=== PATIENT | male | born 1985 ===

== ENCOUNTER 2024-05-11 14:15 | Outpatient (REF) | payer OTHER, SELFPAY ==
--- NOTE | ~2024-05-11 | XR_ITS ---
EXAMINATION: XR LUMBOSACRAL SPINE CLINICAL INFORMATION: Dorsalgia, unspecified. COMPARISON: None available. TECHNIQUE: AP and lateral views of the lumbar spine and lateral view of the lumbosacral junction. FINDINGS: Minimal right convex lumbar curvature and small endplate osteophytes at L1-L2. Intervertebral disc heights are well preserved. Vertebral body heights are normal. Possible mild facet arthropathy at L5-S1. No spondylolisthesis. Cholecystectomy clips in the right upper quadrant. SI joints are unremarkable. XR/XR lumbar spine 2-3V IMPRESSION: 1. Minimal degenerative disc disease at L1-L2. 2. Possible mild facet arthropathy at L5-S1. Electronically signed by: Victor Hugo Espino MD 05/24/2024 11:47 PM EDT
--- NOTE | ~2024-05-11 | XR_ITS ---
EXAMINATION: XR HIP, LEFT CLINICAL INFORMATION: Low back pain, unspecified COMPARISON: None TECHNIQUE: AP and frog-leg lateral views of the left hip. FINDINGS: No fracture. Alignment is anatomic. Hip joint space is maintained. Soft tissues are unremarkable. Bone mineralization is normal. Pubic symphysis is unremarkable. Soft tissues are normal. XR/XR hip LT min 2V IMPRESSION: Normal left hip radiographs. Electronically signed by: Victor Hugo Espino MD 05/24/2024 11:14 PM EDT
== END 2024-05-11 14:16 | disposition home or self-care (01) ==
LOC: HO.XRAY 14:15
PROVIDERS: PCP Student in an Organized Health Care Education/Training Program; Visit Provider Physical Medicine & Rehabilitation
DX: M54.50 Low back pain, unspecified (principal); M25.552 Pain in left hip; M54.9 Dorsalgia, unspecified
CPT/HCPCS: 72100; 73502; 99202

== ENCOUNTER 2024-05-11 14:15 | Outpatient (AMB) | payer OTHER, SELFPAY ==
--- NOTE | 2024-05-11 14:17 | MHC.OFFVIS ---
Intake Visit Reasons: WC LT sided lower back pain Intake Note: Alon is a 38 year old who presents today as a new patient for a worker's compensation related injury to his back that occurred about 4 months ago. Patient was referred to us by [facility], LUAN Jones. Per referral, patient has tried physical therapy which patient has found helpful, however, patient continues to have pain when he tries to lift something. Patient reports pain is mainly on his left side and states it radiates to his buttocks occasionally. Acquisition Marketing Coordinator Required: Yes Acquisition Marketing Coordinator Services: Acquisition Marketing Coordinator Present (Daughter) Acquisition Marketing Coordinator Name: Leandra Allergies No Known Allergies Allergy (Verified 05/11/24 14:18) HPI Comments Details: Works in [employer]. Carries 20-30 lbs. 4 months ago, was picking up a rotor from the floor, bent forward, then felt left sided pain while lifting and bending/twisting. [place] like something broke . Had PT already. No xray or imaging. Nowadays, points to left SI joint area. Radiates to left buttocks only. Not to the foot. Denies numbness. Denies foot drop or weakness. No bladder/bowel pain. Denies chronic back pain or back injury. History of scoliosis, diagnosed 9 years ago but no pain associated with it. Review of Systems Const All systems reviewed & are unremarkable except as noted in HPI and below Physical Exam Constitutional: Patient appears to be in no acute distress, well nourished and well developed. Patient was appropriately conversant and oriented. Good historian. MSK: No specific abnormalities found on inspection of the spine and all extremities. Tender mid lower back. Nontender and SI joint. No tenderness on GT. Lumbar ROM was full. Bilateral hip, knee and ankle ROM WNL. No ligamentous laxity or crepitance. No increased effusion. Straight-leg raising test positive left lateral hip pain. FABERE test positive left lateral hip pain. Strength is 5/5 in all muscle groups tested. No increased tone noted. Neurological: Neurologic examination of the upper and lower extremities was nonfocal with intact sensation, muscle stretch reflexes and without focal motor deficits . Harkins?s negative bilaterally. Babinski was down going bilaterally. Clonus was negative. Gait is antalgic without loss of balance. Results Reviewed Results Reviewed: I reviewed records from the following: Referral note from PCP Assessment & Plan Assessment & Plan (1) Left lumbar pain: Code(s): M54.50 - Low back pain, unspecified Category: Medical (2) Left hip pain: Code(s): M25.552 - Pain in left hip Category: Medical Plan Area of pain suspected to be SI joint but he does not have tenderness over the SI joint. No imaging has been done in the past. Sending for lumbar and hip x-rays today. Briefly discussed possibility of injections and patient would consider. Assessment and plan discussed with patient, and patient was agreeable. All questions were answered thoroughly. Follow up after x-rays, to decide further treatment/injections. Berta Daniels MD, RAMON Board Certified, [place] Board [employer] and Rehabilitation (ABPMR) Board Certified, [place] Board [employer] Electrodiagnostic Medicine (ABEM) Orders: Orders XR lumbar spine 2-3V Today M25.552 - Pain in left hip, M54.50 - Low back pain, unspecified, M54.9 - Dorsalgia, unspecified XR hip LT min 2V Today M25.552 - Pain in left hip, M54.50 - Low back pain, unspecified Coding Level of Care Code New Pt Level 4 (64146) Diagnoses Left lumbar pain M54.50 Left hip pain M25.552
== END 2024-05-11 14:42 | disposition home or self-care (01) ==
PROVIDERS: PCP Student in an Organized Health Care Education/Training Program; Visit Provider Physical Medicine & Rehabilitation
DX: M54.50 Low back pain, unspecified (principal); M25.552 Pain in left hip
CPT/HCPCS: 99203

== ENCOUNTER 2024-06-15 10:01 | Outpatient (AMB) | payer OTHER, SELFPAY ==
--- NOTE | 2024-06-15 10:05 | MHC.OFFVIS ---
Intake Visit Reasons: OV-LT sided lower back pain-follow up Intake Note: Alon is a 38 year old who presents today for a follow up for his lower back pain. Patient reports he is still continuing to have pain. He states that certain movements makes his pain worse. Patient also mentioned since its cold out his pain is a bit worse. Accompanied by: Spouse Allergies No Known Allergies Allergy (Verified 05/11/24 14:18) HPI Comments Details: Works in [employer]. Carries 20-30 lbs. 4 months ago, was picking up a rotor from the floor, bent forward, then felt left sided pain while lifting and bending/twisting. [place] like something broke . Had PT already. No xray or imaging. He points to left SI joint area. Radiates to left buttocks only. Not to the foot. Denies numbness. Denies foot drop or weakness. No bladder/bowel pain. Denies chronic back pain or back injury. He has separate left knee pain. History of scoliosis, diagnosed 9 years ago but no pain associated with it. He says pain is less 5/10 now but still bothers him daily. He [facility] to [facility], the doctor there prescribed a medication that he could not tolerate due to sedation side effects. Last seen there in January/February. WC has been closed. 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 Physical Exam Constitutional: Patient appears to be in no acute distress, well nourished and well developed. Patient was appropriately conversant and oriented. Good historian. MSK: No specific abnormalities found on inspection of the spine and all extremities. Tender left lumbar paraspinals and left SI joint. Lumbar ROM was full. Bilateral hip, knee and ankle ROM WNL. No ligamentous laxity or crepitance. No increased effusion. Straight-leg raising test positive left lateral hip pain. FABERE test positive left lateral hip pain. Strength is 5/5 in all muscle groups tested. No increased tone noted. Neurological: Neurologic examination of the upper and lower extremities was nonfocal with intact sensation, muscle stretch reflexes and without focal motor deficits . Harkins?s negative bilaterally. Babinski was down going bilaterally. Clonus was negative. Gait is not antalgic without loss of balance. Results Reviewed Results Reviewed: Ordering Physician: Berta Bowden Date of Service: 05/11/24 Procedure(s): XR lumbar spine 2-3V Accession Number(s): [id number] cc: Dacia Fuchs; Berta Bowden~ EXAMINATION: XR LUMBOSACRAL SPINE CLINICAL INFORMATION: Dorsalgia, unspecified. COMPARISON: None available. TECHNIQUE: AP and lateral views of the lumbar spine and lateral view of the lumbosacral junction. FINDINGS: Minimal right convex lumbar curvature and small endplate osteophytes at L1-L2. Intervertebral disc heights are well preserved. Vertebral body heights are normal. Possible mild facet arthropathy at L5-S1. No spondylolisthesis. Cholecystectomy clips in the right upper quadrant. SI joints are unremarkable. XR/XR lumbar spine 2-3V IMPRESSION: 1. Minimal degenerative disc disease at L1-L2. 2. Possible mild facet arthropathy at L5-S1. Electronically signed by: Victor Hugo Espino MD 05/24/2024 11:47 PM EDT Ordering Physician: Berta Bowden Date of Service: 05/11/24 Procedure(s): XR hip LT min 2V Accession Number(s): [id number] cc: Dacia Fuchs; Berta Farias EXAMINATION: XR HIP, LEFT CLINICAL INFORMATION: Low back pain, unspecified COMPARISON: None TECHNIQUE: AP and frog-leg lateral views of the left hip. FINDINGS: No fracture. Alignment is anatomic. Hip joint space is maintained. Soft tissues are unremarkable. Bone mineralization is normal. Pubic symphysis is unremarkable. Soft tissues are normal. XR/XR hip LT min 2V IMPRESSION: Normal left hip radiographs. Electronically signed by: Victor Hugo Espino MD 05/24/2024 11:14 PM EDT RP Assessment & Plan Assessment & Plan (1) Left lumbar pain: Code(s): M54.50 - Low back pain, unspecified Category: Medical (2) Lumbar disc herniation: Code(s): M51.26 - Other intervertebral disc displacement, lumbar region Category: Medical Plan Only slightly better since last time I saw him. Left SI joint versus lumbar radiculitis. 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 We discussed treatment options such as SI joint injection versus obtaining lumbar MRI 1st. Patient had undergone adequate conservative management including PT without improvement of condition. It would be reasonable to obtain further imaging such as MRI. An MRI would help rule out any serious condition, guide treatment and assess prognosis for recovery. Specifically ruling out left L5-S1 disc herniation. Assessment and plan discussed with patient, and patient was agreeable. All questions were answered thoroughly. Follow up after MRI. Berta Daniels MD, RAMON Board Certified, [place] Board [employer] Medicine and Rehabilitation (ABPMR) Board Certified, [place] Board [employer] Electrodiagnostic Medicine (ABEM) Orders: Orders MR lumbar spine wo con Today M51.26 - Other intervertebral disc displacement, lumbar region, M54.50 - Low back pain, unspecified Coding Level of Care Code Est Pt Level 4 (78907) Diagnoses Left lumbar pain M54.50 Lumbar disc herniation M51.26
== END 2024-06-15 10:27 | disposition home or self-care (01) ==
PROVIDERS: PCP Student in an Organized Health Care Education/Training Program; Visit Provider Physical Medicine & Rehabilitation
DX: M54.50 Low back pain, unspecified (principal)
CPT/HCPCS: 99214

== ENCOUNTER → 2024-06-15 10:01 | Outpatient (BNVA) | payer OTHER, SELFPAY | PROVIDERS: PCP Student in an Organized Health Care Education/Training Program; Visit Provider Physical Medicine & Rehabilitation | DX: M51.26 Other intervertebral disc displacement, lumbar region (principal) | CPT/HCPCS: 99212 ==

== ENCOUNTER 2024-07-30 09:41 | Outpatient (REF) | payer MEDICAID, SELFPAY ==
--- NOTE | ~2024-07-30 | MR_ITS ---
EXAMINATION: MR LUMBAR SPINE WITHOUT CONTRAST CLINICAL INFORMATION: Low back pain, work injury in November 2023, worsening left-sided lumbar radiculopathy, lower limb instability. Evaluate L5-S1 disc herniation COMPARISON: Lumbar spine x-ray on 05/11/2024 TECHNIQUE: MRI of the lumbar spine was obtained using routine sequences without contrast. FINDINGS: The visualized lumbar vertebrae are intact with normal alignment. Evaluation of the intervertebral discs show: T12/L1: Intervertebral disc height is normal, with normal T2 signal. No focal disc herniation is seen. Bilateral T12/L1 neuroforamina are patent. Bilateral apophyseal joints are intact with normal alignment. Left lateral superior L1 T2 hyperintense lesion with punctate flow voids is seen, measuring 0.7 cm in horizontal diameter, 0.9 cm in vertical height, compatible with a small cavernous hemangioma. L-1/L-2: Intervertebral disc height is normal, with normal T2 signal. No focal disc herniation is seen. Bilateral L1-L2 neuroforamina are patent. Bilateral apophyseal joints are intact with normal alignment. L2/L3: Intervertebral disc height is normal, with normal T2 signal. No focal disc herniation is seen. Bilateral L2-L3 neuroforamina are patent. Bilateral apophyseal joints are intact with normal alignment. L3/L4: Intervertebral disc height is normal, with normal T2 signal. No focal disc herniation is seen. Bilateral L3-L4 neuroforamina are patent. Bilateral apophyseal joints are intact with normal alignment. L4/L5: Intervertebral disc height is normal, with normal T2 signal. No focal disc herniation is seen. Bilateral L4-L5 neuroforamina are patent. Bilateral apophyseal joints are intact with normal alignment. L5/S1: Intervertebral disc height is mildly decreased, with mild loss of T2 signal. No focal disc herniation is seen. Bilateral L5-S1 neuroforamina are patent. Bilateral apophyseal joints are intact with normal alignment. Conus medullaris is seen normally at L1-L2 junction level. MR/MR lumbar spine wo con IMPRESSION: 1. Mild degenerative disc disease at L5-S1. 2. No focal disc herniation, spinal canal stenosis or neural foraminal narrowing is seen. 3. Small cavernous hemangioma at L1. Electronically signed by: Low Nagel MD 08/11/2024 12:42 ZULEIMA ADAMS RP
== END 2024-07-30 09:42 | disposition home or self-care (01) ==
LOC: HO.MRI 09:41
PROVIDERS: PCP Student in an Organized Health Care Education/Training Program; Visit Provider Physical Medicine & Rehabilitation
DX: M51.26 Other intervertebral disc displacement, lumbar region (principal)
CPT/HCPCS: 72148

== ENCOUNTER 2024-08-23 10:18 | Outpatient (REF) | payer MEDICAID, SELFPAY | END 2024-08-23 10:19 | disposition home or self-care (01) | LOC: HO.XRAY 10:18 | PROVIDERS: PCP Student in an Organized Health Care Education/Training Program; Visit Provider Nurse Practitioner Family | DX: M54.50 Low back pain, unspecified (principal); M62.830 Muscle spasm of back; M25.562 Pain in left knee; M53.3 Sacrococcygeal disorders, not elsewhere classified | CPT/HCPCS: 73562; 99212 ==

== ENCOUNTER 2024-08-23 10:18 | Outpatient (AMB) | payer MEDICAID, SELFPAY ==
--- NOTE | 2024-08-23 10:24 | MHC.OFFVIS ---
Vital Signs 08/23/24 10:27 Height 5 ft 6 in Weight 228 lb 4 oz BMI 36.8 BP 148/79 H Blood Pressure Location Lt brachial Position Sitting Pulse 95 Pulse Source Pulse Oximeter Pulse Oximetry (%) 99 Oxygen Delivery Method Room Air Intake Visit Reasons: Sacrococcygeal disorders Intake Note: Pain today 04/09 Wound Care Specialist Required: Yes Wound Care Specialist Language: Content Curator Name: Daughter Accompanied by: Daughter Allergies No Known Allergies Allergy (Verified 08/23/24 10:26) HPI HPI Sacrococcygeal disorders: Details: Patient is 38-year-old Tajik-speaking male presents today with left sided low back pain. She was referred to our office by [facility] services for consideration of SI joint injection. 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 Back pain is localized to left buttock and radiates into his left lateral hip and knee but not below knee level. Denies any numbness, tingling or burning pain. Patient continues to experience significant pain with lifting, bending, twisting, changing positions, climbing stairs, and prolonged walking. He completed physical therapy, tried NSAIDs and heat/ice therapy with no symptom or functioning improvement. Denies any fever or chills, rash, infection, abdominal or groin pain, weakness, bladder or bowel dysfunction or saddle anesthesia. Location: Left side low back and left knee Duration: Chronic pain for over 4 months, due to heavy lifting at work Characteristics of symptom or complaint: Aching, sore, heavy, stabbing, shooting, throbbing Aggravating or associated factors: Walking, lifting, bending, twisting, climbing stairs, movements, work, ADLs Relieving factors: Rest, slow walking, avoiding stairs and heavy lifting, heat/ice, NSAIDs Treatment: Physical therapy, Physiatry evaluation ON LICENSE OF [facility] Medical History (Updated 08/23/24 @ 10:58 by SHARI Ward) Hepatic steatosis Prediabetes Sacroiliac joint pain Surgical History (Updated 08/23/24 @ 10:55 by SHARI Ward) Hx of cholecystectomy Review of Systems Const All systems reviewed & are unremarkable except as noted in HPI and below Physical Exam Vital Signs: Last Vital Signs Pulse 95 12/24/24 10:27 BP 148/79 H 08/23/24 10:27 Pulse Ox 99 08/23/24 10:27 Oxygen Delivery Method Room Air 08/23/24 10:27 BMI result Body Mass Index 36.8 General: Appears afebrile. Alert and oriented. Mood and affect appropriate. Follows and participates in conversation appropriately. Respiratory effort is unlabored. No cough. Able to transition from sit to stand unassisted. Ambulates with bilaterally normal heel strike and toe off. General: Yes no CVA tenderness Back/Spine/Pelvis Other: Patient is able to walk and stand on heels and tip toes with no difficulties demonstrating good motor tone. No limping. Can flex forward to 70-75 degrees and extend to 10-15 degrees before experiencing lumbar pain. Demonstrates 5/5 strength of quadriceps bilaterally as well as flexion/dorsiflexion of bilateral feet against resistance. 2+ pedal pulses bilaterally. Straight leg rise with dorsiflexion negative bilaterally. +2 patellar and achilles reflexes bilaterally. Facet loading test positive bilaterally. Marlyn sign positive on the left, Benjamin?s, [place], Pelvic compression and Stinchfield tests are positive on the left. No groin pain with I/E hip rotations. Valsalva maneuver negative. Back: no CVA tenderness Cervical Spine: cervical ROM normal, cervical muscular tenderness and No Cervical spine tenderness Thoracic/Lumbar Spine: thoracic and lumbar spine normal to inspection, No Thoracic/lumbar spine scar(s), Lasegue's sign negative, straight leg raise negative bilaterally, pain with thoraco-lumbar ROM, No thoracic spinal tenderness and No lumbar spinal tenderness Pelvis: buttock tenderness on the left and no sciatic notch tenderness Sacroiliac joints: on the right nontender and on the left tender to palpation Extrem General: Yes capillary refill normal, Yes no clubbing, cyanosis or edema and Yes no calf tenderness Left lower extremity: knee Details: normal to inspection, tenderness Location: of the patella, of the medial joint line and of the lateral joint line and crepitus; no swelling, no ecchymosis, no deformity and no unusual warmth Results Reviewed Results Reviewed: MR LUMBAR SPINE WITHOUT CONTRAST 07/30/24 CLINICAL INFORMATION: Low back pain, work injury in November 2023, worsening left-sided lumbar radiculopathy, lower limb instability. Evaluate L5-S1 disc herniation COMPARISON: Lumbar spine x-ray on 05/11/2024 TECHNIQUE: MRI of the lumbar spine was obtained using routine sequences without contrast. FINDINGS: The visualized lumbar vertebrae are intact with normal alignment. Evaluation of the intervertebral discs show: T12/L1: Intervertebral disc height is normal, with normal T2 signal. No focal disc herniation is seen. Bilateral T12/L1 neuroforamina are patent. Bilateral apophyseal joints are intact with normal alignment. Left lateral superior L1 T2 hyperintense lesion with punctate flow voids is seen, measuring 0.7 cm in horizontal diameter, 0.9 cm in vertical height, compatible with a small cavernous hemangioma. L-1/L-2: Intervertebral disc height is normal, with normal T2 signal. No focal disc herniation is seen. Bilateral L1-L2 neuroforamina are patent. Bilateral apophyseal joints are intact with normal alignment. L2/L3: Intervertebral disc height is normal, with normal T2 signal. No focal disc herniation is seen. Bilateral L2-L3 neuroforamina are patent. Bilateral apophyseal joints are intact with normal alignment. L3/L4: Intervertebral disc height is normal, with normal T2 signal. No focal disc herniation is seen. Bilateral L3-L4 neuroforamina are patent. Bilateral apophyseal joints are intact with normal alignment. L4/L5: Intervertebral disc height is normal, with normal T2 signal. No focal disc herniation is seen. Bilateral L4-L5 neuroforamina are patent. Bilateral apophyseal joints are intact with normal alignment. L5/S1: Intervertebral disc height is mildly decreased, with mild loss of T2 signal. No focal disc herniation is seen. Bilateral L5-S1 neuroforamina are patent. Bilateral apophyseal joints are intact with normal alignment. Conus medullaris is seen normally at L1-L2 junction level. IMPRESSION: 1. Mild degenerative disc disease at L5-S1. 2. No focal disc herniation, spinal canal stenosis or neural foraminal narrowing is seen. 3. Small cavernous hemangioma at L1. XR LUMBOSACRAL SPINE 05/11/24 CLINICAL INFORMATION: Dorsalgia, unspecified. COMPARISON: None available. TECHNIQUE: AP and lateral views of the lumbar spine and lateral view of the lumbosacral junction. FINDINGS: Minimal right convex lumbar curvature and small endplate osteophytes at L1-L2. Intervertebral disc heights are well preserved. Vertebral body heights are normal. Possible mild facet arthropathy at L5-S1. No spondylolisthesis. Cholecystectomy clips in the right upper quadrant. SI joints are unremarkable. IMPRESSION: 1. Minimal degenerative disc disease at L1-L2. 2. Possible mild facet arthropathy at L5-S1. XR HIP, LEFT 05/11/24 CLINICAL INFORMATION: Low back pain, unspecified COMPARISON: None TECHNIQUE: AP and frog-leg lateral views of the left hip. FINDINGS: No fracture. Alignment is anatomic. Hip joint space is maintained. Soft tissues are unremarkable. Bone mineralization is normal. Pubic symphysis is unremarkable. Soft tissues are normal. IMPRESSION: Normal left hip radiographs. Assessment & Plan Assessment & Plan (1) Left lumbar pain: Code(s): M54.50 - Low back pain, unspecified Category: Medical (2) Muscle spasm of back: Code(s): M62.830 - Muscle spasm of back Category: Medical (3) Left knee pain: Code(s): M25.562 - Pain in left knee Category: Medical (4) Sacroiliac joint pain: Code(s): M53.3 - Sacrococcygeal disorders, not elsewhere classified Category: Medical Plan Schedule Left therapeutic SIJ injection with sedation (per patient's request) and fluoroscopy. Expectations, risks and benefits were reviewed. Patient is aware he will be contacted to schedule this procedure. Patient is not interested in RFA or neuromodulation treatments. Left knee xray to assess degenerative changes and degree of arthritis. Discussed interventional treatment for knee pain, including gel vs steroid injection, genicular RFA and femoral or saphenous nerve Sprint PNS trial. Script provided for cyclobenzaprine. Side effects and precautions were discussed with patient. Patient reports good tolerance with previous use. All questions were answered and the patient is in agreement of plan. Follow-up after injections and sooner as needed. Orders: Orders XR knee LT 3V 08/23/24 M25.562 - Pain in left knee Medications: New cyclobenzaprine 10 mg (2 x 5 mg) PO BEDTIME PRN 60 tabs 0RF muscle spasm M51.26 - Other intervertebral disc displacement, lumbar region, M54.50 - Low back pain, unspecified, M62.830 - Muscle spasm of back Coding Level of Care Code New Pt Level 4 (93553) Complex EM visit Add On G2211 Diagnoses Left lumbar pain M54.50 Muscle spasm of back M62.830 Left knee pain M25.562 Sacroiliac joint pain M53.3
[2024-08-23 10:27] VITALS: BP 148/79; PULSE 95; O2SAT 99; BMI 36.8
== END 2024-08-23 10:59 | disposition home or self-care (01) ==
PROVIDERS: PCP Student in an Organized Health Care Education/Training Program; Visit Provider Nurse Practitioner Family
DX: M54.50 Low back pain, unspecified (principal); M62.830 Muscle spasm of back; M25.562 Pain in left knee; M53.3 Sacrococcygeal disorders, not elsewhere classified
CPT/HCPCS: 99204

== ENCOUNTER 2024-09-16 10:08 | Outpatient (AMB) | payer MEDICAID, SELFPAY ==
[2024-09-16 10:12] VITALS: BMI 36.8
--- NOTE | 2024-09-16 10:12 | MHC.OFFVIS ---
Vital Signs 09/16/24 10:12 Height 5 ft 6 in Weight 228 lb 4 oz BMI 36.8 Intake Visit Reasons: OV- Lumbar Spine MRI review Intake Note: Alon is a 39 year old male who presents today to review his lumbar spine MRI results. 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 Carries 20-30 lbs. 4 months ago, was picking up a rotor from the floor, bent forward, then felt left sided pain while lifting and bending/twisting. [place] like something broke . Had PT already. No xray or imaging. He points to left SI joint area. Radiates to left buttocks only. Not to the foot. Denies numbness. Denies foot drop or weakness. No bladder/bowel pain. Denies chronic back pain or back injury. He has separate left knee pain. History of scoliosis, diagnosed 9 years ago but no pain associated with it. He says pain is less 5/10 now but still bothers him daily. He goes to [facility], the doctor there prescribed a medication that he could not tolerate due to sedation side effects. Last seen there in . WC has been closed. 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 MRI done - No focal disc herniation or foraminal narrowing. Patient possibly has SI joint dysfunction as suspected. Referred to pain management. Seen by Gloria Williamson FORK LIFT TRUCK OPERATOR 08/25/24, scheduled for left SI joint injection. [facility] Medical History (Updated 08/23/24 @ 10:58 by SHARI Ward) Hepatic steatosis Prediabetes Sacroiliac joint pain Surgical History (Updated 08/23/24 @ 10:55 by SHARI Ward) Hx of cholecystectomy Physical Exam Vital Signs: BMI result Body Mass Index 36.8 Constitutional: Patient appears to be in no acute distress, well nourished and well developed. Patient was appropriately conversant and oriented. Good historian. MSK: No specific abnormalities found on inspection of the spine and all extremities. Left SI joint tender. No tenderness over GT lumbar paraspinals. Lumbar ROM was full. Bilateral hip, knee and ankle ROM WNL. No ligamentous laxity or crepitance. No increased effusion. Straight-leg raising test negative. FABERE test positive left lateral hip pain. Strength is 5/5 in all muscle groups tested. No increased tone noted. Neurological: Neurologic examination of the upper and lower extremities was nonfocal with intact sensation, muscle stretch reflexes and without focal motor deficits . Babinski was down going bilaterally. Clonus was negative. Gait is not antalgic without loss of balance. Results Reviewed Results Reviewed: Ordering Physician: Berta Bowden Date of Service: 07/30/24 Procedure(s): MR lumbar spine wo con Accession Number(s): [id number] cc: Dacia Fuchs; Berta Bowden~ EXAMINATION: MR LUMBAR SPINE WITHOUT CONTRAST CLINICAL INFORMATION: Low back pain, work injury in November 2023, worsening left-sided lumbar radiculopathy, lower limb instability. Evaluate L5-S1 disc herniation COMPARISON: Lumbar spine x-ray on 05/11/2024 TECHNIQUE: MRI of the lumbar spine was obtained using routine sequences without contrast. FINDINGS: The visualized lumbar vertebrae are intact with normal alignment. Evaluation of the intervertebral discs show: T12/L1: Intervertebral disc height is normal, with normal T2 signal. No focal disc herniation is seen. Bilateral T12/L1 neuroforamina are patent. Bilateral apophyseal joints are intact with normal alignment. Left lateral superior L1 T2 hyperintense lesion with punctate flow voids is seen, measuring 0.7 cm in horizontal diameter, 0.9 cm in vertical height, compatible with a small cavernous hemangioma. L-1/L-2: Intervertebral disc height is normal, with normal T2 signal. No focal disc herniation is seen. Bilateral L1-L2 neuroforamina are patent. Bilateral apophyseal joints are intact with normal alignment. L2/L3: Intervertebral disc height is normal, with normal T2 signal. No focal disc herniation is seen. Bilateral L2-L3 neuroforamina are patent. Bilateral apophyseal joints are intact with normal alignment. L3/L4: Intervertebral disc height is normal, with normal T2 signal. No focal disc herniation is seen. Bilateral L3-L4 neuroforamina are patent. Bilateral apophyseal joints are intact with normal alignment. L4/L5: Intervertebral disc height is normal, with normal T2 signal. No focal disc herniation is seen. Bilateral L4-L5 neuroforamina are patent. Bilateral apophyseal joints are intact with normal alignment. L5/S1: Intervertebral disc height is mildly decreased, with mild loss of T2 signal. No focal disc herniation is seen. Bilateral L5-S1 neuroforamina are patent. Bilateral apophyseal joints are intact with normal alignment. Conus medullaris is seen normally at L1-L2 junction level. MR/MR lumbar spine wo con IMPRESSION: 1. Mild degenerative disc disease at L5-S1. 2. No focal disc herniation, spinal canal stenosis or neural foraminal narrowing is seen. 3. Small cavernous hemangioma at L1. Electronically signed by: Low Nagel MD 08/11/2024 12:42 PM EST Assessment & Plan Assessment & Plan (1) Sacroiliac joint pain: Code(s): M53.3 - Sacrococcygeal disorders, not elsewhere classified Category: Medical Plan Left sacroiliac joint pain. He actually feels better compared to 1st visit. Has finished physical therapy. Lumbar MRI did not show disc herniation or spinal stenosis. Patient was seen by pain management and waiting for left SI joint injection to be done. We called pain management and they are working on scheduling him. Assessment and plan discussed with patient, and patient was agreeable. All questions were answered thoroughly. Berta Daniels MD, RAMON Board Certified, [place] Board [employer] Physical Medicine and Rehabilitation (ABPMR) Board Certified, [place] Board of Electrodiagnostic Medicine (ABEM) Coding Level of Care Code Est Pt Level 3 (27391) Diagnoses Sacroiliac joint pain M53.3
== END 2024-09-16 10:45 | disposition home or self-care (01) ==
PROVIDERS: PCP Student in an Organized Health Care Education/Training Program; Visit Provider Physical Medicine & Rehabilitation
DX: M53.3 Sacrococcygeal disorders, not elsewhere classified (principal)
CPT/HCPCS: 99213

== ENCOUNTER → 2024-09-16 10:08 | Outpatient (BNVA) | payer MEDICAID, SELFPAY | PROVIDERS: PCP Student in an Organized Health Care Education/Training Program; Visit Provider Physical Medicine & Rehabilitation | DX: M53.3 Sacrococcygeal disorders, not elsewhere classified (principal) | CPT/HCPCS: 99212 ==

== ENCOUNTER 2024-10-07 07:39 | Day surgery (SDC) | payer MEDICAID, SELFPAY ==
[2024-10-05 10:59] VITALS: BMI 35.2
--- NOTE | 2024-10-06 12:03 | HO.ANESPROP2 ---
Documented by User: Marcie Lester NP 10/06/24 12:04 HPI - Anesthesia Eval Consult details Narrative: 39yo M for Sacroiliac Joint Injection PMF Active Problems Active Problems: All Active Problems Left knee pain (Acute) Muscle spasm of back (Acute) Lumbar disc herniation (Acute) Left hip pain (Acute) Left lumbar pain (Acute) Sacroiliac joint pain (Acute) Past Medical History Medical History (Updated 08/23/24 @ 10:58 by SHARI Ward) Hepatic steatosis Prediabetes Sacroiliac joint pain Surgical History Surgical History (Updated 10/05/24 @ 10:57 by Elizabeth Ballard RN) Hx of elbow surgery Hx of cholecystectomy Social History Social History Patient Tobacco Use Status: Never used Tobacco Use of substances other than those prescribed or required for medical reasons: No Advance Directives: No Advance Directives Information Provided: Yes Nutrition Risks: No Nutritional Risk Poor oral hygiene: No Meds Allergies Allergy/AdvReac Type Severity Reaction Status Date / Time No Known Allergies Allergy Verified 09/16/24 10:13 Home Medications ?Medication ?Instructions ?Recorded ?Confirmed ?Last Taken ?Type ibuprofen 800 mg tablet 800 mg PO TID PRN 08/23/24 Unknown History Exam Height,Weight and Vital Signs: Height 5 ft 6 in Weight 98.883 kg Assessment and Plan Assessment Anesthesia Assessment: Chart Reviewed Documented by User: Vaughn Zamorano MD 10/07/24 09:18 [facility] Past Medical History Medical History (Updated 08/23/24 @ 10:58 by SHARI Ward) Hepatic steatosis Prediabetes Sacroiliac joint pain Family History Family history of problems with anesthesia: No Surgical History Surgical History (Updated 10/05/24 @ 10:57 by Elizabeth Ballard, RN) Hx of elbow surgery Hx of cholecystectomy History of Problems with Anesthesia: No Social History Social History Patient Tobacco Use Status: Never used Tobacco Use of substances other than those prescribed or required for medical reasons: No Advance Directives: No Advance Directives Information Provided: Yes Nutrition Risks: No Nutritional Risk Poor oral hygiene: No Meds Allergies Allergy/AdvReac Type Severity Reaction Status Date / Time No Known Allergies Allergy Verified 09/16/24 10:13 Home Medications ?Medication ?Instructions ?Recorded ?Confirmed ?Last Taken ?Type ibuprofen 800 mg tablet 800 mg PO TID PRN 08/23/24 Unknown History Exam Airway Mallampati Class: II TM Dist: <=3cm Neck ROM: Full Partial: Upper Loose/Missing/Broken Teeth: Yes and Upper Heart: ok Lungs: ok Assessment and Plan Assessment Anesthesia Assessment: Anesthesia Plan Discussed Final Anesthetic Review Family History of Problems with Anesthesia: No History of Problems with Anesthesia: No NPO: Yes ASA Class: II Final Preanesthetic Review: No Changes in Pt Med Stat, Meds/Allgs Chart Reviewed, Consent Obtained/Reviewed and Anes Risks/Benef Reviewed Patient Risk: Low Procedure Risk: Intermediate Anesthetic Plan Anesthetic Plan: MAC: and Agree w/ Assess. and Plan Disposition: Standard PACU
--- NOTE | ~2024-10-07 | FL_ITS ---
EXAMINATION: FLUOROSCOPY GUIDANCE FOR NEEDLE PLACEMENT CLINICAL INFORMATION: left SI joint injection COMPARISON: None available. TECHNIQUE: 2 images obtained during a procedure at the left sacroiliac joint and provided fluoroscopy guidance for the fixation. Patient in prone position on the left side. FINDINGS: Medial and contrast material/radiopaque material overlapping the left sacroiliac joint. FLUOROSCOPY TIME: 8.6 segments. DOSE AREA PRODUCT: 2.7826 uGy-m2 (microgray-meter squared) FL/FL guidance in OR IMPRESSION: Nondiagnostic fluoroscopy guidance during a procedure in the left sacroiliac joint. Please refer to the procedure note. Electronically signed by: Harley Cheek MD 10/07/2024 10:10 AM ANGIE
--- OUTSIDE RECORDS SUMMARY | 2024-10-07 07:42 | XMS_ITS | Clinical Summary ---
Author Organization [facility] Address [address] [place] [address] Care Team Providers Care Melter Supervisor Name Role Phone Dacia Fuchs Primary Care Provider [phone] Source Comments PLEASE NOTE, if this patient is a minor, it may be UNLAWFUL to discuss sensitive information that is contained in these records (such as FAMILY PLANNING, MENTAL HEALTH or SUBSTANCE ABUSE) with the minor patient's parent or other person without the patient's specific authorization.[facility] Allergies No known active allergies Medications lidocaine (LIDODERM) 5 % patchIndication s:Chronic pain of left knee Place 1 Patch onto the skin daily. Apply 1 patch to the affected area for a maximum of 12 hours, followed by removal for 12 hours. 30 Patch 1 04/22/2024 Active acetaminophen 325 mg capIndications: Flu vaccine need Take 2 Capsules by mouth every 4 to 6 (four to six) hours 75 Capsule 1 07/25/2024 Active Active Problems Problem Noted Date Diagnosed Date Scoliosis 04/22/2024 Encounters Date Type Department Care Team Description 07/25/2024 10:00 AM EST Office Visit [address] [id number] Chriss Rivera FNP Rodriguez, Anabel Routine general medical examination at a health care facility (Primary Dx); Need for hepatitis B vaccination; Flu vaccine need; Family history of diabetes mellitus 07/25/2024 Travel from Last 3 Months Immunizations Name Administration Dates Next Due Flu, Multi Dose 0.5 ML 06/12/2023 Hep B,adult,adjuvanted (HEPLISAV) 07/25/2024 Influenza (FLUBLOK),recombin ant,injectable,preservative Free 07/25/2024 TDAP 04/22/2024 Family History Medical History Relation Name Comments Diabetes Father Hypertension Father Heart attack Maternal Grandmother Diabetes Mother Hypertension Mother Relation Name Status Comments Brother Alive Daughter 3 Alive Father Alive Maternal Grandmother Mother Alive Sister 1 Alive Sister 2 Alive Son Alive Social History Tobacco Use Types Packs/Day Years Used Date Smoking Tobacco: Former Cigarettes Smokeless Tobacco: Never Tobacco Cessation:Counseling Given: Not Answered Comments:Stopped 3 years ago. Alcohol Use Standard Drinks/Week Comments Yes 0 (1 standard drink = 0.6 oz pur e alcohol) social Social Connections Answer Date Recorded Connectedness 1 04/22/2024 Financial Resource Strain Answer Date R ecorded Financial Resource Strain 1 2023 Stress Answer Date Recorded Stress 1 04/22/2024 Physical Activity Answer Date Recorded Physical Activity 0 12/14/2023 Food Insecurity Answer Date Recorded Food 1 04/22/2024 Transportation Needs Answer Date Record ed Transportation 1 04/22/2024 Housing Stability Answer Date Recorded Housing 1 04/22/2024 Safety and Environment Answer Date Tony rded Safety 0 12/14/2023 Utilities Answer Date Recorded Utilities 1 04/22/2024 Employment Answer Date Recorded Stress 0 04/22/2024 Sex and Gender Information Value Date Recorded Sex Assigned at Male 04/22/2024 6:35 AM PDT Legal Sex Male 10:21 AM PST Gender Identity Male 04/22/2024 6:35 AM PDT Sexual Orientation Straight 04/22/2024 6: 35 AM PDT Last Filed Vital Signs Vital Sign Reading Time Taken Comments Blood Pressure 120/80 07/25/2024 10:24 AM EST Pulse 84 07/25/2024 10:24 AM EST Temperature 36.7 ??C (98 ??F) 07/25/2024 10:24 AM EST Respiratory Rate 16 07/25/2024 10:24 AM EST Oxygen Saturation 98% 07/25/2024 10:24 AM EST Inhaled Oxygen Concentration - - Weight 106.1 kg (234 lb) 07/25/2024 10:24 AM EST Height 167.6 cm (5' 6 ) 07/25/2024 10:24 AM EST Body Mass Index 37.77 07/25/2024 10:24 AM EST Plan of Treatment Health Maintenance Due Date Last Done Comments Imm-Hepatitis B (2 of 2 - Cp G 2-dose series) 08/22/2024 07/25/2024 Alcohol and Drug Screen 08/31/2024 04/22/2024 Depression Annual Screen 08/31/2024 024, 04/22/2024 [id number] ( season) 2025 09/23/2020, 2020 Postponed from 05/01/2024 (Patient postponement) Hypertension Screening (#1) 07/25/2025 Tobacco Screening 07/25/2025 07/25/2024 Diabetes Screening 08/01/2025 08/01/2024, 08/01/2024, 04/22/2024 Lipid Screening 08/01/2027 08/01/2024, 08/01/2024 Imm-DTaP/Tdap/Td (2 - Td or Tdap) 04/22/2034 04/22/2024 HIV Screening Completed 04/22/2024 Hepatitis C Screening Completed 04/22/2024 Imm-Influenza Completed 07/25/2024, 06/12/2023 Procedures Procedure Name Priority Date/Time Associated Diagnosis Comments RFLX - REFLEXIVE URINE CULTURE Routine 08/01/2024 8:34 AM EST Routine general medical examination at a health care facility URINALYSIS, COMPLETE W/REFLEX TO CULTURE Routine 08/01/2024 8:34 AM EST Routine general medical examination at a health care facility HGBA1C W/MPG Routine 08/01/2024 8:34 AM EST Family history of diabetes mellitus LIPIDS W RFLX TO DIRECT LDL Routine 08/01/2024 8:34 AM EST Routine general medical examination at a health care facility COMPREHENSIVE METABOLIC PANEL Routine 08/01/2024 8:34 AM EST Routine general medical examination at a health care facility BLOOD COUNT COMPLETE AUTOMATED Routine 08/01/2024 8:34 AM EST Routine general medical examination at a health care facility HIV 1/2 AG & AB W/RFLX (4TH GEN) Routine 04/22/2024 10:30 AM EDT Screening due HEPATITIS C AB W/RFLX HCV RNA, QT, RT PCR Routine 04/22/2024 10:30 AM EDT Screening due from Last 3 Months or Most Recently Relevant to Health Maintenance Results * (ABNORMAL) HGBA1C W/MPG (08/01/2024 8:34 AM EST) HEMOGLOBIN A1C 5.9(H) <5.7 % of total Hgb [facility] Comment: For someone without known diabetes, a hemoglobin A1c value between 5.7% and 6.4% is consistent with prediabetes and should be confirmed with a follow-up test. For someone with known diabetes, a value <7% indicates that their diabetes is well controlled. A1c targets should be individualized based on duration of diabetes, age, comorbid conditions, and other considerations. This assay result is consistent with an increased risk of diabetes. Currently, no consensus exists regarding use of hemoglobin A1c for diagnosis of diabetes for children. MEAN PLASMA GLUCOSE 133 mg/dL (calc) [facility] Blood Blood / Unknown 08/01/2024 8 :34 AM EST 08/01/2024 8:35 AM EST Narrative [facility] - 08/02/2024 3:50 AM EST FASTING:YES Chriss Rivera [facility] - BLOOD DRAW Final Resul t [facility] [address] [place] [id number], [facility] [address] [place] [phone] * (ABNORMAL) LIPIDS W RFLX TO DIRECT LDL (08/01/2024 8:34 AM EST) CHOLESTEROL, TOTAL 191 <200 mg/dL [facility] HDL CHOLESTEROL 51 > OR = 40 mg/dL [facility] TRIGLYCERIDES 117 <150 mg/dL [facility] LDL-CHOLESTEROL 118(H) 99 mg/dL (calc) [facility] Comment: Reference range: <100 Desirable range <100 mg/dL for primary prevention; ?? <70 mg/dL for patients with CHD or diabetic patients with > or = 2 CHD risk factors. LDL-C is now calculated using the Yadi calculation, which is a validated novel method providing better accuracy than the Friedewald equation in the estimation of LDL-C. Sreekanth KINSEY et al. CYRIL. 2013;310(19): 6178-1014 (http://education.Procyrion/faq/RSQ777) CHOL/HDLC RATIO 3.7 <5.0 (calc) [facility] NON-HDL CHOLESTEROL 140(H) <130 mg/dL (calc) [facility] Comment: For patients with diabetes plus 1 major ASCVD risk factor, treating to a non-HDL-C goal of <100 mg/dL (LDL-C of <70 mg/dL) is considered a therapeutic option. Blood Blood / Unknown 08/01/2024 8 :34 AM EST 08/01/2024 8:35 AM EST Narrative [facility] - 08/02/2024 3:50 AM EST FASTING:YES Chriss [facility] - BLOOD DRAW Final Resul t [facility] [address] [address], [facility] [address] [phone] * URINALYSIS, COMPLETE W/REFLEX TO CULTURE (08/01/2024 8:34 AM EST) COLOR YELLOW YELLOW [facility] APPEARANCE CLEAR CLEAR [facility] SPECIFIC GRAVITY 1.022 1.001 - 1.035 [facility] URINE PH 5.5 5.0 - 8.0 [facility] GLUCOSE NEGATIVE NEGATIVE [facility] BILIRUBIN NEGATIVE NEGATIVE [facility] KETONES NEGATIVE NEGATIVE [facility] OCCULT BLOOD NEGATIVE NEGATIVE [facility] URINE PROTEIN NEGATIVE NEGATIVE [facility] NITRITE NEGATIVE NEGATIVE [facility] LEUKOCYTE ESTERASE NEGATIVE NEGATIVE [facility] URINE LEUKOCYTES NONE SEEN < OR = 5 [facility] RBC NONE SEEN < OR = 2 [facility] SQUAMOUS EPITHELIAL CELLS NONE SEEN < OR = 5 [facility] BACTERIA NONE SEEN NONE SEEN [facility] HYALINE CAST NONE SEEN NONE SEEN [facility] SEE NOTE See Below [facility] Comment: This urine was analyzed for the presence of WBC, RBC, bacteria, casts, and other formed elements. Only those elements seen were reported. Urine Urine specimen / Unknown 08/01/2024 8:34 AM EST 08/01/2024 8:35 AM EST Narrative [facility] - 08/02/2024 3:50 AM EST FASTING:YES weendy [facility] - NO BLOOD DRAW Edited R esult - Final Performing Organization Address [facility] Co de Phone Number [facility] [address] [address], [facility] [address] [phone] * RFLX - REFLEXIVE URINE CULTURE (08/01/2024 8:34 AM EST) REFLEXIVE URINE CULTURE See Below [facility] Comment:NO CULTURE INDICATED 08/01/2024 8:34 AM EST 08/01/2024 8:35 AM EST Narrative [facility] - 08/02/2024 3:50 AM EST FASTING:YES weendy [facility] - NO BLOOD DRAW Edited R Passenger [employer] - Final Performing Organization Address City/[facility]/ZIP Co de Phone Number [facility] [address] [address], [place] [address] [phone] * BLOOD COUNT COMPLETE AUTOMATED (08/01/2024 8:34 AM EST) WHITE BLOOD CELL COUNT 5.0 3.8 - 10.8 Thousand/ uL [facility] RED BLOOD CELL COUNT 5.06 4.20 - 5.80 Million/u L [facility] HEMOGLOBIN 15.7 13.2 - 17.1 g/dL [facility] HEMATOCRIT 47.7 38.5 - 50.0 % [facility] MCV 94.3 80.0 - 100.0 fL [facility] MCH 31.0 27.0 - 33.0 pg [facility] MCHC 32.9 32.0 - 36.0 g/dL [facility] Comment: For adults, a slight decrease in the calculated MCHC value (in the range of 30 to 32 g/dL) is most likely not clinically significant; however, it should be interpreted with caution in correlation with other red cell parameters and the patient's clinical condition. RDW 12.9 11.0 - 15.0 % [facility] PLATELET COUNT 230 140 - 400 Thousand/ uL [facility] MPV 9.6 7.5 - 12.5 fL [facility] Blood Blood / Unknown 08/01/2024 8 :34 AM EST 08/01/2024 8:35 AM EST Narrative [facility] - 08/02/2024 3:50 AM EST FASTING:YES Chriss Rivera [facility] - BLOOD DRAW Edited Resu lt - Final [facility] [address] [place] [id number], [facility] [address] [place] [address] * (ABNORMAL) COMPREHENSIVE METABOLIC PANEL (08/01/2024 8:34 AM EST) [facility] GLUCOSE 118(H) 65 - 99 mg/dL [facility] Comment: ?Fasting reference interval For someone without known diabetes, a glucose value between 100 and 125 mg/dL is consistent with prediabetes and should be confirmed with a follow-up test. UREA NITROGEN (BUN) 12 7 - 25 mg/dL [facility] CREATININE (blood) 0.90 0.60 - 1.29 mg/dL [facility] EGFR 111 > OR = 60 mL/min/1. 73m2 [facility] BUN/CREATININE RATIO SEE NOTE: [facility] Comment: ?? Not Reported: BUN and Creatinine are within ?? reference range. ? SODIUM 139 135 - 146 mmol/L [facility] POTASSIUM 4.8 3.5 - 5.3 mmol/L [facility] CHLORIDE 103 98 - 110 mmol/L [facility] CARBON DIOXIDE 32 20 - 32 mmol/L [facility] CALCIUM 9.5 8.6 - 10.3 mg/dL [facility] PROTEIN, TOTAL 7.1 6.1 - 8.1 g/dL [facility] ALBUMIN 4.6 3.6 - 5.1 g/dL [facility] GLOBULIN 2.5 1.9 - 3.7 g/dL (calc) [facility] ALBUMIN/GLOBULI N RATIO 1.8 1.0 - 2.5 (calc) [facility] BILIRUBIN, TOTAL 0.3 0.2 - 1.2 mg/dL [facility] ALKALINE PHOSPHATASE 58 36 - 130 U/L [facility] AST 41(H) 10 - 40 U/L [facility] ALT 84(H) 9 - 46 U/L [facility] Blood Blood / Unknown 08/01/2024 8 :34 AM EST 08/01/2024 8:35 AM EST Narrative [facility] - 08/02/2024 3:50 AM EST FASTING:[facility] Final Resul t [facility] [address] [place] [id number], [facility] [address] [address] * HEPATITIS C AB W/RFLX HCV RNA, QT, RT PCR (04/22/2024 10:30 AM EDT) HEPATITIS C ANTIBODY NON-REACT VILMA NON-REACT VILMA [facility] Comment: HCV antibody was non-reactive. There is no laboratory evidence of HCV infection. In most cases, no further action is required. However, if recent HCV exposure is suspected, a test for HCV RNA (test code 37432) is suggested. For additional information please refer to http://education.YellowHammer/faq/HEW17j4 (This link is being provided for informational/ educational purposes only.) Blood Blood / Unknown 04/22/2024 1 0:30 AM EDT 04/22/2024 10:31 AM EDT Narrative [facility] - 04/23/2024 5:49 AM EDT FASTING:NO Dacia [facility] - BLOOD DRAW Final Result Performing Organization Address [facility]/ZIP Co de Phone Number [facility] [address] [address], [place] [address] [phone] * HIV 1/2 AG & AB W/RFLX (4TH GEN) (04/22/2024 10:30 AM EDT) HIV AG/AB, 4TH GEN NON-REAC TIVE NON-REAC TIVE [facility] Comment: HIV-1 antigen and HIV-1/HIV-2 antibodies were not detected. There is no laboratory evidence of HIV infection. PLEASE NOTE: This information has been disclosed to you from records whose confidentiality may be protected by state law. ??If your state requires such protection, then the state law prohibits you from making any further disclosure of the information without the specific written consent of the person to whom it pertains, or as otherwise permitted by law. A general authorization for the release of medical or other information is NOT sufficient for this purpose. ?? For additional information please refer to http://education.YellowHammer/faq/CGT850 (This link is being provided for informational/ educational purposes only.) The performance of this assay has not been clinically validated in patients less than 2 years old. Blood Blood / Unknown 04/22/2024 1 0:30 AM EDT 04/22/2024 10:31 AM EDT Narrative [facility] - 04/23/2024 5:49 AM EDT FASTING:NO us Dacia [facility] - BLOOD DRAW Final Result [facility] [address] [address], [place] [address] [phone] from Last 3 Months or Most Recently Relevant to Health Maintenance Insurance [id number] Care Teams Melter Supervisor Relationship Specialty Start Date End Date Dacia Fuchs PA [facility] [place] [address] PCP - General Primary Care 01/15/24
[2024-10-07 08:18] VITALS: BMI 35.4
[2024-10-07 08:19] VITALS: BP 125/86; PULSE 84; RESP 16; TEMP 36.2; O2SAT 95
[2024-10-07] MEDS: Lactated Ringers 1,000 ML 100 ML IVCONT (08:33)
--- NOTE | 2024-10-07 09:23 | MHC.SHP ---
Pre-Procedural Eval Section A - 24 Hr Update-Section A only Date of Service: 10/07/24 The patient is an INPATIENT: No Changes since office visit: Yes Patient answered all questions The patient has been examined within 24 hours of the surgical procedure. The History & Physical has been completed within 30 days and I have reviewed it.: No Section B - Complete if H&P > 30 days Chief Complaint: Sacrococcygeal disorders, not elsewhere classified Details of Present Illness: As above Relevant Family History (Specify if Yes): No Relevant Social History: None Present Medications: see Short Stay Collaborative assessment Medical History: No relevant PMH History of Previous Operations: No relevant previous surgery Allergies: Allergies Allergy/AdvReac Type Severity Reaction Status Date / Time No Known Allergies Allergy Verified 09/16/24 10:13 Review of Systems Sugical H&P ROS: Negative: Constitution, Cardiovascular, Respiratory, Neurological, Psychiatric, Hem-Onc, Allergic/Immunologic, Gastrointestinal, Genitourinary, Musculoskeletal, Integumentary, Endocrine and Eyes/Ears/Nose/Throat Exam Surgical H&P Exam: Normal: HEENT, Normal: Heart, Normal: Lungs, Normal: Extremities, Normal: Abdomen, Normal: Skin and Normal: Neurological Plan Diagnosis/Plan: Unchanged I have reviewed the history and physical and performed a pertinent physical examination on my patient. No changes have occurred unless specified. Time Spent With Patient Time: Total time managing care of this patient today _5___ minutes.
[2024-10-07 09:51] VITALS: BP 112/83; PULSE 92; RESP 16; TEMP 36.6; O2SAT 94
--- NOTE | 2024-10-07 09:56 | P.BOP_ITS ---
Brief Operative Note Date of Service: 10/07/24 Pre-op diagnosis: Sacroiliitis, sacroiliac joint dysfunction left. Post-op diagnosis: same Procedure: Left sacroiliac joint steroid injection. Surgeon: Jamie Daniel MD Anesthesia: MAC Was an Hazard Waste Handler used for this Procedure?: No Estimated blood loss (mL): 0 Condition: stable Disposition: PACU
--- NOTE | 2024-10-07 09:56 | W.PM.OPN ---
Operative Note Operative Note Date of Service: 10/07/24 Narrative: Left therapeutic sacroiliac joint injection. Informed consent was thoroughly explained to the patient before the procedure.? The patient came to the operating room.? He was positioned prone on operating table with a pillow under his abdomen. ASA monitors were applied and patient was moderately sedated. ? Time-out was performed delineating correct site and side of the procedure, nature of the injection, name and date of of the patient. The lower back and upper buttocks of the patient was prepped with ChloraPrep and draped with sterile utility towels.? C-arm was brought over the operating field and picture of the left sacroiliac joint was demonstrated on the screen. Tilting machine contralateral right 20 degrees from the midline the anterior portion of the silhouette of the joint was superimposed on posterior portion of the silhouette of the joint. The skin was anesthetized with mixture of ropivacaine 0.5% and lidocaine 2% one-to-one slightly medial to the silhouette of the sacroiliac joint. 22 gauge 3-1/2 inch spinal needle was inserted through the skin wheal and advanced to the sacroiliac joint. When tip of the needle entered the sacroiliac joint injection of the contrast performed delineating arthrogram. After that 4 cc of ropivacaine mixed with Kenalog 40 mg was injected into the joint. Upon completion of the injection needle was removed . sterile bandades were applied Patient tolerated the procedure well. He was awakened and transferred to PACU for recovery.
[2024-10-07 10:06] VITALS: BP 130/80; PULSE 78; RESP 20; TEMP 36.6; O2SAT 96
== END 2024-10-07 10:51 | disposition home or self-care (01) ==
PROVIDERS: PCP Student in an Organized Health Care Education/Training Program; Visit Provider Anesthesiology
PROC: 3E0U33Z Introduction of Anti-inflammatory into Joints, Percutaneous Approach (ICD-10-PCS; CPT 27096; principal; 2024-10-07 09:50)
DX: M53.3 Sacrococcygeal disorders, not elsewhere classified (principal); M51.26 Other intervertebral disc displacement, lumbar region; M62.830 Muscle spasm of back; M25.562 Pain in left knee; Z87.828 Personal history of other (healed) physical injury and trauma; K76.0 Fatty (change of) liver, not elsewhere classified; R73.03 Prediabetes; Z90.49 Acquired absence of other specified parts of digestive tract
CPT/HCPCS: 27096; J2003; J2250; J2704; J2795; J3010; J3301; Q9967

== ENCOUNTER → 2024-10-07 07:39 | Outpatient (BNV) | CPT/HCPCS: 27096 ==

== ENCOUNTER 2024-11-11 10:18 | Outpatient (AMB) | payer MEDICAID, SELFPAY ==
--- NOTE | 2024-11-11 10:21 | MHC.OFFVIS ---
Vital Signs 11/11/24 10:25 Height 5 ft 6 in Weight 210 lb BMI 33.9 BP 141/106 H Blood Pressure Location Lt brachial Position Sitting Pulse 72 Pulse Source Pulse Oximeter Pulse Oximetry (%) 99 Oxygen Delivery Method Room Air Intake Visit Reasons: S/p (L) Therapeutic SIJ Inj 10/07/24 Intake Note: Pain today 11/07 Agronomy Advisor Required: Yes Agronomy Advisor Language: Chemical Process Engineer Services: Agronomy Advisor Offered & Declined Agronomy Advisor Name: Luke Accompanied by: Spouse Allergies No Known Allergies Allergy (Verified 11/11/24 10:24) HPI Comments Details: The patient is a 39-year-old male presenting with follow-up and assess response to left therapeutic SIJ joint injection on 10/07/[address] Daniel. Following the administration of a therapeutic injection to the left sacroiliac joint one month ago, the patient reports significant improvement in symptoms. Notably, this treatment has alleviated his left knee pain, which has been a longstanding issue, with a reported 80% reduction in overall pain. Prior to the injection, the patient occasionally experienced pain in both knees. The x-ray of the left knee revealed normal findings, ruling out effusion, fractures, or inflammation. Post-injection, the patient's sleep and functional abilities have markedly improved, and he no longer requires analgesics for pain management. Denies any recent cough, cold, infection, fever or any significant changes in medical history since last office visit. - Affect: Reports improved well-being and mood post-injection with significant pain relief. - Analgesia: No current use of analgesics post-injection; previously used ibuprofen with limited relief. - Adverse Effects: None reported post-injection. - Activities of Daily Living: Significantly improved post-injection, with better sleep and overall functionality. - Aberrant Drug Related Behaviors: None reported or observed. Past Procedures: 10/07/24: Left therapeutic SI joint injection-80% ongoing pain relief PRIOR: Patient is 38-year-old Maldivian-speaking male presents today with left sided low back pain. She was referred to our office by [facility] physiatry services for consideration of SI joint injection. 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 Back pain is localized to left buttock and radiates into his left lateral hip and knee but not below knee level. Denies any numbness, tingling or burning pain. Patient continues to experience significant pain with lifting, bending, twisting, changing positions, climbing stairs, and prolonged walking. He completed physical therapy, tried NSAIDs and heat/ice therapy with no symptom or functioning improvement. Denies any fever or chills, rash, infection, abdominal or groin pain, weakness, bladder or bowel dysfunction or saddle anesthesia. Location: Left side low back and left knee Duration: Chronic pain for over 4 months, due to heavy lifting at work Characteristics of symptom or complaint: Aching, sore, heavy, stabbing, shooting, throbbing Aggravating or associated factors: Walking, lifting, bending, twisting, climbing stairs, movements, work, ADLs Relieving factors: Rest, slow walking, avoiding stairs and heavy lifting, heat/ice, NSAIDs Treatment: Physical therapy, Physiatry evaluation [facility] Medical History Hepatic steatosis Prediabetes Sacroiliac joint pain Surgical History Hx of elbow surgery Hx of cholecystectomy Social History Patient Tobacco Use Status: Never used Tobacco Review of Systems Const All systems reviewed & are unremarkable except as noted in HPI and below Physical Exam Vital Signs: Last Vital Signs Pulse 72 11/11/24 10:25 BP 141/106 H 11/11/24 10:25 Pulse Ox 99 11/11/24 10:25 Oxygen Delivery Method Room Air 11/11/24 10:25 BMI result Body Mass Index 33.9 General: Appears afebrile. Alert and oriented. Mood and affect appropriate. Follows and participates in conversation appropriately. Respiratory effort is unlabored. No cough. Able to transition from sit to stand unassisted. Ambulates with bilaterally normal heel strike and toe off. Back/Spine/Pelvis Sacroiliac joints: on the right nontender and on the left tender to palpation (mild) Extrem General: Yes capillary refill normal, Yes no clubbing, cyanosis or edema and Yes no calf tenderness Left lower extremity: knee Details: normal to inspection, normal ROM and crepitus; no tenderness and no swelling Results Reviewed Results Reviewed: MR LUMBAR SPINE WITHOUT CONTRAST 07/30/24 CLINICAL INFORMATION: Low back pain, work injury in November 2023, worsening left-sided lumbar radiculopathy, lower limb instability. Evaluate L5-S1 disc herniation COMPARISON: Lumbar spine x-ray on 05/11/2024 TECHNIQUE: MRI of the lumbar spine was obtained using routine sequences without contrast. FINDINGS: The visualized lumbar vertebrae are intact with normal alignment. Evaluation of the intervertebral discs show: T12/L1: Intervertebral disc height is normal, with normal T2 signal. No focal disc herniation is seen. Bilateral T12/L1 neuroforamina are patent. Bilateral apophyseal joints are intact with normal alignment. Left lateral superior L1 T2 hyperintense lesion with punctate flow voids is seen, measuring 0.7 cm in horizontal diameter, 0.9 cm in vertical height, compatible with a small cavernous hemangioma. L-1/L-2: Intervertebral disc height is normal, with normal T2 signal. No focal disc herniation is seen. Bilateral L1-L2 neuroforamina are patent. Bilateral apophyseal joints are intact with normal alignment. L2/L3: Intervertebral disc height is normal, with normal T2 signal. No focal disc herniation is seen. Bilateral L2-L3 neuroforamina are patent. Bilateral apophyseal joints are intact with normal alignment. L3/L4: Intervertebral disc height is normal, with normal T2 signal. No focal disc herniation is seen. Bilateral L3-L4 neuroforamina are patent. Bilateral apophyseal joints are intact with normal alignment. L4/L5: Intervertebral disc height is normal, with normal T2 signal. No focal disc herniation is seen. Bilateral L4-L5 neuroforamina are patent. Bilateral apophyseal joints are intact with normal alignment. L5/S1: Intervertebral disc height is mildly decreased, with mild loss of T2 signal. No focal disc herniation is seen. Bilateral L5-S1 neuroforamina are patent. Bilateral apophyseal joints are intact with normal alignment. Conus medullaris is seen normally at L1-L2 junction level. IMPRESSION: 1. Mild degenerative disc disease at L5-S1. 2. No focal disc herniation, spinal canal stenosis or neural foraminal narrowing is seen. 3. Small cavernous hemangioma at L1. XR LUMBOSACRAL SPINE 05/11/24 CLINICAL INFORMATION: Dorsalgia, unspecified. COMPARISON: None available. TECHNIQUE: AP and lateral views of the lumbar spine and lateral view of the lumbosacral junction. FINDINGS: Minimal right convex lumbar curvature and small endplate osteophytes at L1-L2. Intervertebral disc heights are well preserved. Vertebral body heights are normal. Possible mild facet arthropathy at L5-S1. No spondylolisthesis. Cholecystectomy clips in the right upper quadrant. SI joints are unremarkable. IMPRESSION: 1. Minimal degenerative disc disease at L1-L2. 2. Possible mild facet arthropathy at L5-S1. XR HIP, LEFT 05/11/24 CLINICAL INFORMATION: Low back pain, unspecified COMPARISON: None TECHNIQUE: AP and frog-leg lateral views of the left hip. FINDINGS: No fracture. Alignment is anatomic. Hip joint space is maintained. Soft tissues are unremarkable. Bone mineralization is normal. Pubic symphysis is unremarkable. Soft tissues are normal. IMPRESSION: Normal left hip radiographs. Assessment & Plan Assessment & Plan (1) Sacroiliac joint pain: Code(s): M53.3 - Sacrococcygeal disorders, not elsewhere classified Category: Medical (2) Left knee pain: Code(s): M25.562 - Pain in left knee Category: Medical Plan The patient has responded well to the sacroiliac joint therapeutic injection administered on 10/07/24, reporting a substantial reduction in pain and improved overall function. We reviewed his left knee xray which was normal. Given the relief experienced, no immediate additional pain medication is required. Monitoring the duration of therapeutic relief is essential, and a repeat injection may be considered in three months if symptoms recur. Continuous home exercise should be maintained, and should symptoms re-emerge, the patient is encouraged to contact the office for further management, including potential additional injections if needed. All questions and concerns have been answered and patient agreed with the plan. Follow up as needed. Patient was informed and verbally consented to the use of an ambient scribe for clinic note documentation during this visit. Patient Instructions: During today's visit, I discussed with the patient the significant improvement observed following the sacroiliac joint therapeutic injection. The patient reported 80% pain reduction and improved functionality. We reviewed the normal results of the left knee x-ray and the absence of current pain medication usage following the injection. I emphasized the importance of monitoring ongoing symptom relief and the potential need to repeat the injection in 3 months if symptoms recur. I further advised the patient to continue with home stretching exercises to support ongoing pain management. The patient was informed to contact our office should symptoms return, and agreed with the outlined management plan. - Continue home stretching exercises as instructed, daily physical activity, weigh optimization, good posture, and adequate hydration. - Monitor the duration of relief from the sacroiliac joint injection. - Contact the office if symptoms return or worsen. - A repeat therapeutic injection may be possible in three months if needed. Coding Level of Care Code Est Pt Level 3 (97912) Complex EM visit Add On G2211 Diagnoses Sacroiliac joint pain M53.3 Left knee pain M25.562
[2024-11-11 10:25] VITALS: BP 141/106; PULSE 72; O2SAT 99; BMI 33.9
--- OUTSIDE RECORDS SUMMARY | 2024-11-11 11:40 | XMS_ITS | Clinical Summary ---
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 Name Role Phone Dacia Fuchs Primary Care Provider [phone] Source Comments PLEASE NOTE, if this patient [...] Problem Noted Date Diagnosed Date Scoliosis 04/22/2024 Immunizations Name Administration Dates Next Due Flu, [...] Drug Screen 08/31/2024 04/22/2024 Depression Annual Screen 08/31/202407/25/ 024, 04/22/2024 [id number] ( season) 2025 09/23/2020, 2020 Postponed from 05/01/2024 (Patient postponement) Hypertension Screening (#1) 07/25/2025 Tobacco Screening 07/25/2025 07/25/2024 Diabetes Screening 08/01/2025 08/01/2024, 08/01/2024, 04/22/2024 Lipid Screening 08/01/2027 08/01/2024, 08/01/2024 Imm-DTaP/Tdap/Td (2 - Td or Tdap) 04/22/2034 04/22/2024 HIV Screening Completed 04/22/2024 Hepatitis C Screening Completed 04/22/2024 Imm-Influenza Completed 07/25/2024, 06/12/2023 Procedures Procedure Name Priority Date/Time Associated Diagnosis Comments COMPREHENSIVE METABOLIC PANEL Routine 08/01/2024 8:34 AM EST Routine general medical examination at a health care facility LIPIDS W RFLX TO DIRECT LDL Routine 08/01/2024 8:34 AM EST Routine general medical examination at a [facility] care facility HIV 1/2 AG & AB W/RFLX (4TH GEN) Routine 04/22/2024 10:30 AM EDT Screening due HEPATITIS C AB W/RFLX HCV RNA, QT, RT PCR Routine 04/22/2024 10:30 AM EDT Screening due from Last 3 Months or Most Recently Relevant to Health Maintenance Results * (ABNORMAL) LIPIDS W RFLX TO DIRECT LDL (08/01/2024 8:34 AM EST) CHOLESTEROL, TOTAL 191 <200 mg/dL [facility] HDL CHOLESTEROL 51 > OR = 40 mg/dL [facility] TRIGLYCERIDES 117 <150 mg/dL [facility] LDL-CHOLESTEROL 118(H) 99 mg/dL (calc) [facility] Comment: Reference range: <100 Desirable range <100 mg/dL for primary prevention; ?? <70 mg/dL for patients with CHD or diabetic patients with > or = 2 CHD risk factors. LDL-C is now calculated using the Yadi calculation, which is a validated novel method providing better accuracy than the Friedewald equation in the estimation of LDL-C. Sreekanth SS et al. CYRIL. 2013;310(19): 2368-9293 (http://education.Affinity Circles/faq/CHH315) CHOL/HDLC RATIO 3.7 <5.0 (calc) [facility] NON-HDL CHOLESTEROL 140(H) <130 mg/dL (calc) [facility] Comment: For patients with diabetes plus 1 major ASCVD risk factor, treating to a non-HDL-C goal of <100 mg/dL (LDL-C of <70 mg/dL) is considered a therapeutic option. Blood Blood / Unknown 08/01/2024 8 :34 AM EST 08/01/2024 8:35 AM EST Narrative [facility] - 08/02/2024 3:50 AM EST FASTING:YES Chriss [facility] - BLOOD DRAW Final Resul t [facility] [address] [place] [id number], [facility] [address] [place] [phone] * (ABNORMAL) COMPREHENSIVE METABOLIC PANEL (08/01/2024 8:34 AM EST) GLUCOSE 118(H) 65 - 99 mg/dL [facility] Comment: ?Fasting reference interval For someone without known diabetes, a glucose value between 100 and 125 mg/dL is consistent with prediabetes and should be confirmed with a follow-up test. UREA NITROGEN (BUN) 12 7 - 25 mg/dL [facility] CREATININE (blood) 0.90 0.60 - 1.29 mg/dL [facility] EGFR 111 > OR = 60 mL/min/1. 73m2 [facility] BUN/CREATININE RATIO SEE NOTE: [facility] Comment: ?? Not Reported: BUN and Creatinine are within ?? reference range. ? SODIUM 139 135 - 146 mmol/L [facility] POTASSIUM 4.8 3.5 - 5.3 mmol/L [facility] CHLORIDE 103 98 - 110 mmol/L [facility] CARBON DIOXIDE 32 20 - 32 mmol/L [facility] CALCIUM 9.5 8.6 - 10.3 mg/dL [facility] PROTEIN, TOTAL 7.1 6.1 - 8.1 g/dL [facility] ALBUMIN 4.6 3.6 - 5.1 g/dL [facility] GLOBULIN 2.5 1.9 - 3.7 g/dL (calc) [facility] ALBUMIN/GLOBULI N RATIO 1.8 1.0 - 2.5 (calc) [facility] BILIRUBIN, TOTAL 0.3 0.2 - 1.2 mg/dL [facility] ALKALINE PHOSPHATASE 58 36 - 130 U/L [facility] AST 41(H) 10 - 40 U/L [facility] ALT 84(H) 9 - 46 U/L [facility] Blood Blood / Unknown 08/01/2024 8 :34 AM EST 08/01/2024 8:35 AM EST Narrative [facility] - 08/02/2024 3:50 AM EST FASTING:YES Chriss Rivera [facility] - BLOOD DRAW Final Resul t [facility] [address] [address], [facility] [address] [phone] * HEPATITIS C AB W/RFLX HCV RNA, QT, RT PCR (04/22/2024 10:30 AM EDT) HEPATITIS C ANTIBODY NON-REACT VILMA NON-REACT VILMA [facility] Comment: HCV antibody was non-reactive. There is no laboratory evidence of HCV infection. In most cases, no further action is required. However, if recent HCV exposure is suspected, a test for HCV RNA (test code 99683) is suggested. For additional information please refer to http://education.AdmitSee/faq/BIP05z2 (This link is being provided for informational/ educational purposes only.) Blood Blood / Unknown 04/22/2024 1 0:30 AM EDT 04/22/2024 10:31 AM EDT Narrative [facility] - 04/23/2024 5:49 AM EDT FASTING:NO Dacia [facility] - BLOOD DRAW Final Result [facility] [address] [place] [id number], [facility] [address] [address] * HIV 1/2 AG & AB W/RFLX (4TH GEN) (04/22/2024 10:30 AM EDT) HIV AG/AB, 4TH GEN NON-REAC TIVE NON-REAC TIVE [facility] Comment: HIV-1 antigen and HIV-1/HIV-2 antibodies were [...] ?? For additional information please refer to http://education.Hyperpot.Theme [employer] News (TTN)/faq/GBB982 (This link is being provided for informational/ educational purposes only.) The performance of this assay has not been clinically validated in patients less than 2 years old. 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
== END 2024-11-11 10:29 | disposition home or self-care (01) ==
LOC: HO.PMC 10:19
PROVIDERS: PCP Student in an Organized Health Care Education/Training Program; Visit Provider Nurse Practitioner Family
DX: M53.3 Sacrococcygeal disorders, not elsewhere classified (principal); M25.562 Pain in left knee
CPT/HCPCS: 99213

== ENCOUNTER → 2024-11-11 10:18 | Outpatient (BNVA) | payer MEDICAID, SELFPAY | PROVIDERS: PCP Student in an Organized Health Care Education/Training Program; Visit Provider Nurse Practitioner Family | DX: M53.3 Sacrococcygeal disorders, not elsewhere classified (principal); M25.562 Pain in left knee | CPT/HCPCS: 99212 ==